=== PATIENT | male | born 1975 | race Caucasian/White ===

== ENCOUNTER 2021-03-11 06:00 | Day surgery (SDC) | payer BC, SELFPAY ==
[~2021-03-11] VITALS: Ht 182.9 cm; Wt 70.3 kg
[2021-03-11] MEDS ORDERED: ACETAMINOPHEN I.V. 1000 MG 100 ML IV ONE (07:24)
[2021-03-11] MEDS ORDERED: MIDAZOLAM HCL 2 MG/2 ML VIAL (VERSED) IVP PRN (08:15)
[2021-03-11] MEDS ORDERED: LABETALOL 100 MG/ 20ML VIAL IVP PRN (08:15)
[2021-03-11] MEDS ORDERED: METOCLOPRAMIDE HCL 10 MG/2 ML VIAL IVP PRN (08:15)
[2021-03-11] MEDS ORDERED: HYDROmorphone 1 MG/ML INJ. CARTRIDGE IVP PRN ×2 (08:15)
[2021-03-11] MEDS ORDERED: LR 1,000 ML IV SCH (08:15)
[2021-03-11] MEDS ORDERED: hydrALAZINE HCL 20 MG/ML VIAL IVP PRN (08:15)
[2021-03-11] MEDS ORDERED: MEPERIDINE HCL/PF 25 MG/ML DISP.SYRIN IVP PRN (08:15)
[2021-03-11] MEDS ORDERED: WATER FOR IRRIGATION,STERILE 1,000 ML IRRIG.SOLN IR ONE (10:19)
[2021-03-11] MEDS ORDERED: DEXAMETHASONE SOD PHOSPHATE 4 MG/ML VIAL ONE (10:19)
[2021-03-11] MEDS ORDERED: MIDAZOLAM HCL 5 MG/ML VIAL (VERSED) IV ONE (10:19)
[2021-03-11] MEDS ORDERED: ROCURONIUM BROMIDE 10 MG/ML (ZEMURON) ONE (10:19)
[2021-03-11] MEDS ORDERED: LIDOCAINE 2%, 20 ML MDV ONE (10:19)
[2021-03-11] MEDS ORDERED: DESFLURANE 15 MIN GAS INH ONE (10:19)
[2021-03-11] MEDS ORDERED: LR 1,000 ML IV.SOLN IV ONE (10:19)
[2021-03-11] MEDS ORDERED: PROPOFOL 200MG/ 20ML VIAL (DIPRIVAN) IV ONE (10:19)
[2021-03-11] MEDS ORDERED: LIDOCAINE/EPI 1% 1:100000 20 ML VIAL INJ ONE (10:19)
[2021-03-11] MEDS ORDERED: ONDANSETRON HCL 4 MG/2 ML VIAL ONE (10:19)
[2021-03-11] MEDS ORDERED: fentaNYL CITRATE 250 MCG/5 ML AMP ONE (10:19)
[2021-03-11] MEDS ORDERED: NS 1000 ML IV.SOLN IV ONE (10:19)
[2021-03-11] MEDS ORDERED: NS IRRIG SOLN 1000 ML IR ONE (10:19)
[2021-03-11] MEDS ORDERED: METOCLOPRAMIDE HCL 10 MG/2 ML VIAL ONE (11:52)
[2021-03-11 13:39] VITALS: BP_SYST 104
== END 2021-03-11 13:25 | disposition home or self-care (01) ==
LOC: SDS 06:00 → SMU 06:00 → SDS 13:25
PROVIDERS: ATTEND Otolaryngology
DX: J34.89 Other specified disorders of nose and nasal sinuses (principal); D38.5 Neoplasm of uncertain behavior of other respiratory organs; J34.2 Deviated nasal septum; K21.9 Gastro-esophageal reflux disease without esophagitis; G47.33 Obstructive sleep apnea (adult) (pediatric); Z99.89 Dependence on other enabling machines and devices; Z79.899 Other long term (current) drug therapy; Z20.822 Contact with and (suspected) exposure to COVID-19
CPT/HCPCS: 30140; 30520; 31240; 31254; 31256; 31298; 88305; 88311; J0131; J1100; J2001; J2250; J2405; J2704; J2765; J3010; J7030; J7120; U0003